=== PATIENT | female | born 1985 | race Caucasian/White ===

== ENCOUNTER 2017-03-23 14:36 | Emergency (ER) | payer OTHER ==
[~2017-03-23 14:36] MED LIST: ONDA4TAB7 PO; PROC10TA PO; RANI150T PO; ZOFR4TAB3 SL; ZOLO50TA PO
[2017-03-23 14:40] VITALS: PULSE 91
[2017-03-23 14:45] VITALS: PULSE 92
[2017-03-23 14:50] VITALS: PULSE 104
--- NOTE | 2017-03-23 14:55 | PD ---
HPI Chief Complaint Contractions Date Seen: Mar 23, 2017 (Trish Novoa MD R2) Travel History International Travel<30 Days: No Contact w/Intl Traveler<30Days: No (Trish Novoa MD R2) History of Present Illness HPI Patient is a 31 year old at 38-1/7 weeks gestation who presents today for contractions and back pain. Contractions started yesterday and have been increasing in frequency. She also notes a constant back pain and states that this is how her labor felt with her last child. She denies any vaginal bleeding but continues to have her usual whitish discharge. She denies any gush or leaking of fluid. Positive movement. care with Dr. Ash. (Trish Novoa MD R2) History Past Medical History Medical History: Denies Significant Hx (Trish Novoa MD R2) Obstetric History Obstetric History at 34 weeks gestation (Trish Novoa MD R2) Past Surgical History Surgical History: No Previous Surgery (Trish Novoa MD R2) Family History Family History: Negative (Trish Novoa MD R2) Social History Alcohol Use: No Tobacco Use: No Substance Abuse: No (Trish Novoa MD R2) Allergies-Medications (Allergen,Severity, Reaction): Coded Allergies: Sudafed (Verified Allergy, Severe, 08/25/16) Home Meds Active Scripts Sertraline (Zoloft)50 Mg Tab50 Mg PO DAILY #90 TAB Prov:Lydia Ash MD 08/27/16 Ranitidine 150 Mg [id number] Mg PO Q12HR #60 TAB Prov:Lydia Ash MD 08/27/16 Prochlorperazine Maleate 10 Mg Tab10 Mg PO Q6H #30 TAB Prov:Lydia Ash MD 08/27/16 Ondansetron Odt 4 Mg Tab8 Mg PO Q6H #60 TAB Prov:Lydia Ash MD 08/27/16 Reported Medications Ondansetron Odt (Zofran Odt)4 Mg Tab4 Mg SL Q6HR PRN (Nausea/Vomiting) #30 TAB Ref 0 08/25/16 Review of Systems Except as stated in HPI: all other systems reviewed are Neg General / Constitutional: No: Fever, Chills Eyes: No: Visual changes HENT: No: Headaches Cardiovascular: No: Chest Pain or Discomfort Respiratory: No: Short of Breath Gastrointestinal: No: Nausea, Abdominal Pain Genitourinary: Pelvic Pain, Discharge, No: Vaginal Bleeding Musculoskeletal: No: Edema Psychiatric: No: Substance Abuse (Trish Novoa MD R2) Physical Exam Narrative GENERAL: Well-nourished, well-developed patient. SKIN: Warm and dry. HEAD: Normocephalic and atraumatic. EYES: No scleral icterus. No injection or drainage. ENT: No nasal drainage noted. Mucous membranes pink. Airway patent. NECK: Supple, trachea midline. No JVD. CARDIOVASCULAR: Regular rate and rhythm without murmurs, gallops, or rubs. RESPIRATORY: Breath sounds equal bilaterally. No accessory muscle use. ABDOMEN/GI: Abdomen soft, non-tender, bowel sounds present, no rebound, no guarding Gravid to 38 weeks size GENITOURINARY: External Genitalia: intact and normal in appearance BUS glands: normal Cervix: posterior Dilatation: 3 Effacement: 80 Station: -2 Presentation: vertex Membranes: intact Uterine Contractions: q1-4mins FHT's: Category: I Baseline: 150 Reactive: + Variability: moderate Decels: none EXTREMITIES: No cyanosis or edema. BACK: Nontender without obvious deformity. No CVA tenderness. NEUROLOGICAL: Awake and alert. Motor and sensory grossly within normal limits. Normal speech. (Trish Novoa MD R2) Data Data Vital Signs Reviewed: Yes (Trish Novoa MD R2) MDM Medical Record Reviewed: Yes Narrative Course / MDM 31 year old at 38-1/7 weeks gestation 1. IUP- Category I tracing, reassuring. 2. Contractions- Will observe for 1 hour and evaluate for cervical change. Patient declines Vistaril or Tylenol. ady Linares Addendum: No cervical change noted after one hour. Counseling provided regarding labor precautions. Discharge to home. (Trish Novoa MD R2) Diagnosis Diagnosis: Primary Impression: False labor Additional Impression: 38 weeks gestation of Disposition: DISCHARGE HOME Condition: Stable Collaborating MD Comments Patient without cervical change, back pain without contractions. Will discharge with followup to OB provider (Cassidy Linares MD) Trish Novoa MD R2 Mar 23, 2017 14:55 Cassidy Linares MD Mar 23, 2017 20:10
== END 2017-03-23 16:00 | disposition home or self-care (01) ==
LOC: HOBED 14:36 → MERGE 14:36 → HOBED 16:00
DX: O47.1 False labor at or after 37 completed weeks of gestation (principal); M54.9 Dorsalgia, unspecified; Z3A.38 38 weeks gestation of pregnancy; Z79.899 Other long term (current) drug therapy
CPT/HCPCS: 59025

== ENCOUNTER 2017-03-24 11:08 | Inpatient (IN) | payer OTHER ==
[2017-03-24] VITALS (38 sets, daily range): BP systolic 91–131; BP diastolic 48–95; PULSE 77–213; RESP 18–20; TEMP 97.5–98.8
--- NOTE | 2017-03-24 11:49 | HHI.HP ---
HPI Chief Complaint SROM [address] Ash today Date Seen: Mar 24, 2017 Travel History International Travel<30 Days: No Contact w/Intl Traveler<30Days: No Known Affected Area: No History of Present Illness HPI 31 yo F 38 wks with SROM at term , no bleeding , + CTXs q 3 min Para: 1 : 2 History Obstetric History Obstetric History 1 vag delivery Social History Alcohol Use: No Tobacco Use: No Substance Abuse: No Review of Systems General / Constitutional: No: Fever, Weight Gain, Chills, Other Eyes: No: Diploplia, Blurred Vision, Visual changes, Pain, Photophobia HENT: No: Headaches, Vertigo, Lightheadedness Cardiovascular: No: Irregular Rhythm, Chest Pain or Discomfort, Palpitations, Tachycardia, Syncope, Varicosities, Edema, Cyanosis Respiratory: No: Cough, Short of Breath, Other Gastrointestinal: No: Nausea, Vomiting, Diarrhea Genitourinary: No: Decreased Urinary Output, Oliguria Musculoskeletal: No: Limited ROM, Weakness, Cramping, Edema, Pain Skin: No Rash, No Itching, No Dryness, No Lumps, No Change in Pigmentation, No Change in Nails, No Alopecia, No Lesions Neurologic: No: Weakness, Dizziness, Syncope, Focal Abnormalities, Coordination Problem, Headache, Slurred Speech, Seizures Psychiatric: No: Depression, Suicidal Ideations, Homicidal Ideation Endocrine: No: Heat Intolerance, Cold Intolerance, Polydipsia, Polyuria, Other Physical Exam Narrative GENERAL: Well-nourished, well-developed patient. SKIN: Warm and dry. HEAD: Normocephalic and atraumatic. EYES: No scleral icterus. No injection or drainage. ENT: No nasal drainage noted. Mucous membranes pink. Airway patent. NECK: Supple, trachea midline. No JVD. CARDIOVASCULAR: Regular rate and rhythm without murmurs, gallops, or rubs. RESPIRATORY: Breath sounds equal bilaterally. No accessory muscle use. BREASTS: Bilateral exam showed no masses , no retractions, no nipple discharge. ABDOMEN/GI: Abdomen soft, non-tender, bowel sounds present, no rebound, no guarding Gravid to [-38] weeks size Fundal Height: [38-] GENITOURINARY: External Genitalia: intact and normal in appearance Cervix: [-3] Dilatation: [-3] Effacement: [80-] Station: [-2] Presentation: [-vtx] Membranes: ruptured] Uterine Contractions: [reg-] FHT's: Category: [1-] Baseline: [-133] Reactive: [-yes] Variability: [-mod] Decels: [-0] EXTREMITIES: No cyanosis or edema. BACK: Nontender without obvious deformity. No CVA tenderness. NEUROLOGICAL: Awake and alert. Motor and sensory grossly within normal limits. Five out of 5 muscle strength in all muscle groups. Normal speech. Assessment/Plan Assessment and Plan 38 wk SROM , FHR reactive , + reg CTXs , Admit to Burke Cohen II, MD Mar 24, 2017 11:49
[2017-03-24] MEDS ORDERED: LACTATED RINGER'S 1000 ML INJ 1,000 ML IV SCH ×2 (11:50→12:20)
[2017-03-24] MEDS ORDERED: LACTATED RINGER'S 1000 ML INJ 1,000 ML IV PRN ×2 (11:50→12:20)
[2017-03-24] MEDS ORDERED: CITRIC ACID-SODIUM CITRATE LIQ 30 ML UDC PO SCH ×2 (12:00→12:30)
[2017-03-24] MEDS ORDERED: SODIUM CHLORID 0.9% 500 ML INJ 500 ML IV PRN ×2 (12:00→12:30)
[2017-03-24] MEDS ORDERED: LIDOCAINE HCL 1% 50 ML VIAL I-DERMAL PRN ×2 (12:00→12:30)
[2017-03-24] MEDS ORDERED: OXYTOCIN 30 UNITS-500ML PREMIX 500 ML IV ONE ×2 (12:00→12:30)
[2017-03-24] MEDS ORDERED: LIDOCAINE HCL 1% 50 ML VIAL INFIL PRN ×2 (12:00→12:30)
[2017-03-24] MEDS ORDERED: MINERAL OIL 10 ML VIAL TOPICAL PRN ×2 (12:00→12:30)
[2017-03-24] MEDS ORDERED: SODIUM CHLOR 0.9% 1000 ML INJ 1,000 ML IV PRN ×2 (12:10→12:40)
[2017-03-24] MEDS ORDERED: OXYTOCIN 30 UNITS-500ML PREMIX 500 ML IV SCH (12:30)
[2017-03-24 12:43] LABS: AUTOMATED NEUTROPHIL # 8.4 TH/MM3 (1.8-7.7); BASOPHIL % 0.4 % (0.0-2.0); EOSINOPHIL # 0.1 TH/MM3 (0-0.4); EOSINOPHIL % 1.2 % (0.0-4.0); HEMATOCRIT 34.3 % (35.0-46.0); HEMO FLAGS DIFF FINAL; LYMPH % 15.6 % (9.0-44.0); LYMPHOCYTE # 1.7 TH/MM3 (1.0-4.8); MEAN CELL VOLUME 81.5 FL (80.0-100.0); MEAN CORPUSCULAR HEMOGLOBIN 27.8 PG (27.0-34.0); MEAN CORPUSCULAR HGB CONC 34.1 % (32.0-36.0); MONO % 6.4 % (0.0-8.0); NEUT % 76.4 % (16.0-70.0); PLATELET COUNT 262 TH/MM3 (150-450); RED BLOOD COUNT 4.21 MIL/MM3 (4.00-5.30); RED CELL DISTRIBUTION WIDTH 13.4 % (11.6-17.2)
[2017-03-24 12:55] LABS: BACTERIA, URINE FEW /hpf; BLOOD, URINE MOD (NEG); COMMENT (UR) CULTURE INDICATED; CULTURE IF INDICATED CULTURE INDICATED; GLUCOSE,URINE NEG (NEG); KETONE, URINE TRACE mg/dL (NEG); MUCUS URINE FEW /lpf (OCC); NITRITE,URINE NEG (NEG); SQUAMOUS EPITHELIAL CELL URINE 17 /hpf (0-5); URINE COLOR YELLOW (YELLW/STRAW)
--- NOTE | 2017-03-24 13:51 | PD.PN.STU ---
Subjective Remarks CC: SROM and contractions HPI: 31 yo mwf at 38 weeks 2 days gestation presenting to the OB ED after SROM and subsequent evaluation at the office of Dr. Ash. She has had appropriate care and is up to date on screenings. Rh-negative. GBS- negative. has been uncomplicated other than hyperemesis gravidarum which was medically managed with Zofran. She was seen at [facility] yesterday which showed no change in her cervix at that time but she has had constant and persistent back pain and contractions. Blood pressure and weight has been reassuring. FHT's and measurements have been appropriate. Anterior placenta. 3- cord vessel. Fetus was in breech position at 25 weeks. 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 Last pap 09/01/16 normal. No history of STDs. OB: One prior with induced vaginal delivery at 34 weeks in 03/2013 at [facility]. 34 hour labor. No other complications. Received epidural. PMHx: None. HIV negative. HCV negative. Social: No ETOH or tobacco use in . Drug screen negative. Objective Vitals Vital Signs Date Time Temp Pulse Resp B/P Pulse Ox O2 Delivery O2 Flow Rate FiO2 03/24/17 13:15 18 03/24/17 13:14 97.5 03/24/17 13:03 92 124/77 Result Diagram: 03/24/17 1205 A/P Assessment and Plan Impression: 31 yo mwf at 38 and 2 weeks gestation in labor after SROM. Problem list: 1. Term labor 2. SROM 3. Hx of labor 4. Hx of prolonged labor 5. Hx of HG Plan: Anticipate . Discharge Planning To be determined by Dr. Ash. Linda Kilpatrick M3 Mar 24, 2017 13:51
[2017-03-24] MEDS ORDERED: ePHEDrine/NS 25 MG/5 ML SYR ONE (15:02)
[2017-03-24] MEDS ORDERED: fentaNYL 2MCG-BUPIV 0.125% INJ 100 ML ONE (15:02)
[2017-03-24] MEDS ORDERED: DIPHTH/TETANUS/ACEL PERTUSSIS (BOOSTER) 0.5 ML VIAL/PFS IM ONE (16:00)
[2017-03-24] MEDS ORDERED: MEASLES, MUMPS, RUBELLA VACCINE 0.5 ML VIAL SQ ONE (16:00)
--- NOTE | 2017-03-24 19:52 | PD.OB.DELI ---
Anesthesia: Epidural Episiotomy: None Vaginal Delivery: Normal Presentation: Occiput anterior Nuchal Cord: None Delayed cord clamping (45 sec): Yes Infant: Female One Minute : 9 Five Minute : 9 Weight: 6 7 Placenta: Spontaneous delivery Laceration: No lacerations Lydia Ash MD Mar 24, 2017 19:52
[2017-03-24] MEDS ORDERED: BENZOCAINE 20% TOPICAL SPRAY 60 ML CAN TOPICAL PRN (20:00)
[2017-03-24] MEDS ORDERED: ACETAMINOPHEN 325 MG TAB PO PRN (20:00)
[2017-03-24] MEDS ORDERED: ALUMINUM/MAGNESIUM/SIMETH 30 ML CUP PO PRN (20:00)
[2017-03-24] MEDS ORDERED: SODIUM CHLORIDE 0.9% FLUSH 10 ML FLUSH IV FLUSH PRN (20:00)
[2017-03-24] MEDS ORDERED: WITCH HAZEL 50%/GLYCERIN 12.5% 40 PAD JAR TOPICAL PRN (20:00)
[2017-03-24] MEDS ORDERED: ZOLPIDEM TARTRATE 5 MG TAB PO PRN (20:00)
[2017-03-24] MEDS ORDERED: DOCUSATE SODIUM 50 MG/SENNA 8.6 MG TAB PO PRN (20:00)
[2017-03-24] MEDS ORDERED: ONDANSETRON ODT 4 MG TAB PO PRN (20:00)
[2017-03-24] MEDS ORDERED: SODIUM CHLORIDE 0.9% FLUSH 10 ML FLUSH IV FLUSH SCH (21:00)
[2017-03-25] MEDS: IBUPROFEN 600 MG TAB PO PRN ×4 (00:06→18:28)
[2017-03-25 08:30] VITALS: BP 104/67; PULSE 97; RESP 18; TEMP 97.8
--- NOTE | 2017-03-25 10:09 | HHI.OB ---
Subjective Post Day: 1 Remarks PPD#1, doing well, plan discharge today Objective Vitals/I&O Vital Signs Date Time Temp Pulse Resp B/P Pulse Ox O2 Delivery O2 Flow Rate FiO2 03/25/17 08:30 97.8 97 18 104/67 03/24/17 22:00 98.7 03/24/17 22:00 114 20 116/60 03/24/17 21:18 20 03/24/17 20:45 18 03/24/17 20:45 110 03/24/17 20:45 108/68 03/24/17 20:31 104 03/24/17 20:31 91/62 03/24/17 20:30 18 03/24/17 20:15 97 118/89 03/24/17 20:10 98.8 03/24/17 20:10 18 03/24/17 20:02 114 03/24/17 20:02 111/95 03/24/17 19:51 94 03/24/17 19:51 131/66 03/24/17 19:45 20 03/24/17 19:31 100 124/62 03/24/17 19:15 18 03/24/17 19:01 99 111/54 03/24/17 18:31 85 114/60 03/24/17 18:15 98.0 18 03/24/17 18:00 79 112/70 03/24/17 17:30 77 106/61 03/24/17 17:00 88 111/60 03/24/17 16:37 79 102/48 03/24/17 16:32 96 03/24/17 16:00 96 106/60 03/24/17 15:55 90 03/24/17 15:50 97 03/24/17 15:45 97 03/24/17 15:45 95 115/60 03/24/17 15:40 94 03/24/17 15:40 96 112/61 03/24/17 15:37 100 106/58 03/24/17 15:36 213 03/24/17 15:35 115 03/24/17 15:33 116 120/69 03/24/17 15:30 106 119/64 03/24/17 15:30 107 03/24/17 15:25 101 03/24/17 15:22 109 119/77 03/24/17 15:05 98.2 18 03/24/17 15:00 92 108/54 03/24/17 14:40 97 98/70 03/24/17 13:15 18 03/24/17 13:14 97.5 03/24/17 13:03 92 124/77 Objective Remarks GENERAL: Well-nourished, well-developed patient. CARDIOVASCULAR: Regular rate and rhythm without murmurs, gallops, or rubs. RESPIRATORY: Breath sounds equal bilaterally. No accessory muscle use. ABDOMEN/GI: Abdomen soft, non-tender. Fundus: Firm, non-tender at umbilicus. GENITOURINARY: Light to moderate bleeding. EXTREMITIES: No cyanosis or edema, non-tender, without signs of DVT. Medications and IVs Current Medications Medications (Trade) Dose Ordered Sig/Mercedez Route Start Time Stop Time Status Last Admin Oxytocin 500 ml @ 0 mls/hr TITRATE IV 03/24/17 12:30 03/24/17 13:14 Lactated Ringer's 1,000 ml @ 125 mls/hr Q8H IV 03/24/17 12:20 03/24/17 12:58 Lactated Ringer's 1,000 ml @ 3,000 mls/hr Q20M PRN IV 03/24/17 12:20 Sodium Chloride 500 ml @ 1,000 mls/hr ONCE PRN IV 03/24/17 12:30 03/25/17 12:29 (NS 1000 ml Inj) 1,000 ml @ 100 mls/hr Q10H PRN IV 03/24/17 12:40 (fentaNYL INJ) 50 mcg Q1H PRN IV PUSH 03/24/17 12:30 (fentaNYL INJ) 100 mcg Q1H PRN IV PUSH 03/24/17 12:30 (Muri-Lube Oil) 10 ml UNSCH PRN TOPICAL 03/24/17 12:30 (NS Flush) 2 ml BID IV FLUSH 03/24/17 21:00 (NS Flush) 2 ml UNSCH PRN IV FLUSH 03/24/17 20:00 (Tylenol) 650 mg Q4H PRN PO 03/24/17 20:00 (Motrin) 600 mg Q6H PRN PO 03/24/17 20:00 03/25/17 06:11 (Americaine 20% Top Spr) 1 spray Q4H PRN TOPICAL 03/24/17 20:00 (Tucks Pads) 1 applic QID PRN TOPICAL 03/24/17 20:00 (Maira-Colace) 2 tab Q12H PRN PO 03/24/17 20:00 03/25/17 00:06 (Ambien) 5 mg HS PRN PO 03/24/17 20:00 (Mag-Al Plus Susp Liq) 15 ml Q8H PRN PO 03/24/17 20:00 (Zofran Odt) 4 mg Q6H PRN PO 03/24/17 20:00 Assessment/Plan Assessment and Plan PPD#1, stable for discharge to day Discharge Planning routine Attending Attestation seen by Dann Deleon MD Mar 25, 2017 10:09
--- NOTE | 2017-03-25 10:13 | HHI.DS ---
Admission Date Mar 24, 2017 at 11:51 Admitting Diagnosis Diagnosis: Vaginal Delivery: Normal : Female Brief History 31 yo F 38 wks with SROM at term , no bleeding , + CTXs q 3 min Pt Condition on Discharge: Good Discharge Disposition: Discharge Home Discharge Instructions Diet Instructions: As Tolerated, No Restrictions Activities You Can Perform: Shower Only-No Bath Activities to Avoid: Driving for 24 hrs, Prolonged Standing, Strenuous Activity , Sexual Activity Dann Fu MD Mar 25, 2017 10:12
--- NOTE | 2017-03-25 11:50 | PD.PN.STU ---
Subjective Remarks 31 yo mwf PPD 1 s/p uncomplicated delivery after SROM yesterday. Mother and baby are stable - no complaints. Both slept well last night. Minor uterine bleeding. No lacerations. Ambulating. Currently - baby is getting better at doing so. Mood is stable, appropriate affect. 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 Objective Vitals Vital Signs Date Time Temp Pulse Resp B/P Pulse Ox O2 Delivery O2 Flow Rate FiO2 03/25/17 08:30 97.8 97 18 104/67 03/24/17 22:00 98.7 03/24/17 22:00 114 20 116/60 03/24/17 21:18 20 03/24/17 20:45 18 03/24/17 20:45 110 03/24/17 20:45 108/68 03/24/17 20:31 104 03/24/17 20:31 91/62 03/24/17 20:30 18 03/24/17 20:15 97 118/89 03/24/17 20:10 98.8 03/24/17 20:10 18 03/24/17 20:02 114 03/24/17 20:02 111/95 03/24/17 19:51 94 03/24/17 19:51 131/66 03/24/17 19:45 20 03/24/17 19:31 100 124/62 03/24/17 19:15 18 03/24/17 19:01 99 111/54 03/24/17 18:31 85 114/60 03/24/17 18:15 98.0 18 03/24/17 18:00 79 112/70 03/24/17 17:30 77 106/61 03/24/17 17:00 88 111/60 03/24/17 16:37 79 102/48 03/24/17 16:32 96 03/24/17 16:00 96 106/60 03/24/17 15:55 90 03/24/17 15:50 97 03/24/17 15:45 97 03/24/17 15:45 95 115/60 03/24/17 15:40 94 03/24/17 15:40 96 112/61 03/24/17 15:37 100 106/58 03/24/17 15:36 213 03/24/17 15:35 115 03/24/17 15:33 116 120/69 03/24/17 15:30 106 119/64 03/24/17 15:30 107 03/24/17 15:25 101 03/24/17 15:22 109 119/77 03/24/17 15:05 98.2 18 03/24/17 15:00 92 108/54 03/24/17 14:40 97 98/70 03/24/17 13:15 18 03/24/17 13:14 97.5 03/24/17 13:03 92 124/77 Result Diagram: 03/24/17 1205 A/P Assessment and Plan Impression: 31 yo mwf PPD 1 currently medically stable. Problem list: 1. Term labor (uncomplicated) 2. Mild anemia post-delivery. 3. . Plan: Maintain current regimen until discharge. Discharge Planning To be determined by Dr. Fu. Anticipate discharge this afternoon if remaining stable. Linda Kilpatrick M3 Mar 25, 2017 11:50
[2017-03-25 20:00] VITALS: BP 95/59; PULSE 89; RESP 18; TEMP 98.5
[2017-03-26] MEDS: IBUPROFEN 600 MG TAB PO PRN (05:46)
--- NOTE | 2017-03-26 07:35 | PD.PN.STU ---
Subjective Remarks Doing well, was able to sleep with relief from nursery. Assisted by in the room. Pumping and bottle feeding do to lack of production - already been seen by as400 consultant Pt has been able to urinate, ambulate, and have bowel movements. Denies early signs of baby blues. Denies breast pain or irritation. Denies discharge or excessive bleeding Pain well manages with current medication regiment. Discharge today -orders prepared by Dr. Fu yesterday Objective Vitals Vital Signs Date Time Temp Pulse Resp B/P Pulse Ox O2 Delivery O2 Flow Rate FiO2 03/25/17 20:00 95/59 03/25/17 20:00 98.5 03/25/17 20:00 89 18 03/25/17 08:30 97.8 97 18 104/67 Result Diagram: 03/24/17 1205 Objective Remarks Gen: Awake, oriented, appears in no distress Cardio: RRR, no gallops or murmurs resp: clear to auscultation bilaterally throughout extremities: negative Carley's sign bilaterally, no edema. Psych: normal mood, happy mommy A/P Assessment and Plan Impression: 31 yo mwf PPD 2 currently medically stable. Problem list: 1. Term labor (uncomplicated) 2. Mild anemia post-delivery. 3. . Plan: Maintain current regimen until discharge. Discharge Planning Ordered by yesterday Rose Steinbreg M3 Mar 26, 2017 07:35
[2017-03-26 07:45] VITALS: BP 97/73; PULSE 85; RESP 18; TEMP 98.4
--- NOTE | 2017-03-26 08:47 | HHI.OB ---
Subjective Post Day: 2 Remarks , doing well Objective Vitals/I&O Vital Signs Date Time Temp Pulse Resp B/P Pulse Ox O2 Delivery O2 Flow Rate FiO2 03/25/17 20:00 95/59 03/25/17 20:00 98.5 03/25/17 20:00 89 18 Objective Remarks GENERAL: Well-nourished, well-developed patient. CARDIOVASCULAR: Regular rate and rhythm without murmurs, gallops, or rubs. RESPIRATORY: Breath sounds equal bilaterally. No accessory muscle use. ABDOMEN/GI: Abdomen soft, non-tender. Fundus: Firm, non-tender at umbilicus. GENITOURINARY: Light to moderate bleeding. EXTREMITIES: No cyanosis or edema, non-tender, without signs of DVT. Medications and IVs Current Medications Medications (Trade) Dose Ordered Sig/Mercedez Route Start Time Stop Time Status Last Admin Oxytocin 500 ml @ 0 mls/hr TITRATE IV 03/24/17 12:30 03/24/17 13:14 Lactated Ringer's 1,000 ml @ 125 mls/hr Q8H IV 03/24/17 12:20 03/24/17 12:58 Lactated Ringer's 1,000 ml @ 3,000 mls/hr Q20M PRN IV 03/24/17 12:20 (NS 1000 ml Inj) 1,000 ml @ 100 mls/hr Q10H PRN IV 03/24/17 12:40 (fentaNYL INJ) 50 mcg Q1H PRN IV PUSH 03/24/17 12:30 (fentaNYL INJ) 100 mcg Q1H PRN IV PUSH 03/24/17 12:30 (Muri-Lube Oil) 10 ml UNSCH PRN TOPICAL 03/24/17 12:30 (NS Flush) 2 ml BID IV FLUSH 03/24/17 21:00 (NS Flush) 2 ml UNSCH PRN IV FLUSH 03/24/17 20:00 (Tylenol) 650 mg Q4H PRN PO 03/24/17 20:00 (Motrin) 600 mg Q6H PRN PO 03/24/17 20:00 03/26/17 05:46 (Americaine 20% Top Spr) 1 spray Q4H PRN TOPICAL 03/24/17 20:00 (Tucks Pads) 1 applic QID PRN TOPICAL 03/24/17 20:00 (Maira-Colace) 2 tab Q12H PRN PO 03/24/17 20:00 03/25/17 00:06 (Ambien) 5 mg HS PRN PO 03/24/17 20:00 (Mag-Al Plus Susp Liq) 15 ml Q8H PRN PO 03/24/17 20:00 (Zofran Odt) 4 mg Q6H PRN PO 03/24/17 20:00 Assessment/Plan Assessment and Plan PPD#2, stable for discharge to day Discharge Planning routine Attending Attestation pt seen by Prachi Sylvester MD Mar 26, 2017 08:47
[2017-03-26] MEDS ORDERED: IBUP-232 PO (08:48)
== END 2017-03-26 11:42 | disposition home or self-care (01) | DRG 775 ==
LOC: HOBED 11:08 → H2EB 11:51 → H1EA 21:19
PROVIDERS: ADMIT Obstetrics & Gynecology; ATTEND Obstetrics & Gynecology
PROC: 10E0XZZ Delivery of Products of Conception, External Approach (ICD-10-PCS; principal; 2017-03-24)
DX: O80 Encounter for full-term uncomplicated delivery (principal); D64.9 Anemia, unspecified; O99.02 Anemia complicating childbirth; Z3A.38 38 weeks gestation of pregnancy; Z37.0 Single live birth
CPT/HCPCS: 81001; 85025; 85461; 86850; 86900; 86901; 87086; 90384; 90715; 99285; J2590; J2790; J7120